=== PATIENT | female | born 1945 | race Caucasian/White ===

== ENCOUNTER 2017-05-12 16:35 | Inpatient (IN) | payer MEDICARE, OTHER ==
[2017-05-12 17:53] LABS: PROTHROMBIN TIME 14.3 SEC (11.4-15.4)
[2017-05-12 17:54] LABS: PARTIAL THROMBOPLASTIN TIME 27.8 SEC (23.5-35.8)
[2017-05-12 17:55] LABS: ABSOLUTE LYMPHOCYTES (AUTO) 0.6 10^3/uL (0.5-4.7); ABSOLUTE MONOCYTES (AUTO) 0.9 10^3/uL (0.1-1.4); ABSOLUTE NEUT (AUTO) 8.5 10^3/uL (1.7-8.2); BASOPHILS % (AUTO) 0.5 % (0-2); HEMATOCRIT 44.7 % (36.0-47.0); HGB HCT DIFFERENCE 0.3; LYMPHOCYTES % (AUTO) 6.1 % (13-45); MEAN CORPUSCULAR HEMOGLOBIN 29.7 pg (27.0-33.4); MEAN CORPUSCULAR HGB CONC 33.4 g/dL (32.0-36.0); MEAN CORPUSCULAR VOLUME 89 fl (80-97); RED BLOOD COUNT 5.03 10^6/uL (3.72-5.28); RED CELL DISTRIBUTION WIDTH 13.3 % (11.5-14.0); SEGMENTED NEUTROPHILS % (AUTO) 84.4 % (42-78); WHITE BLOOD COUNT 10.1 10^3/uL (4.0-10.5)
--- NOTE | 2017-05-12 18:07 | RADIOLOGY REPORT (SQ) ---
EXAM DESCRIPTION: CT HEAD WITHOUT COMPLETED DATE/TIME: 05/12/2017 5:55 pm REASON FOR STUDY: evaluate for CVA COMPARISON: None. TECHNIQUE: Axial images acquired through the brain without intravenous contrast. Images reviewed wi th bone, brain and subdural windows. Images stored on PACS. All CT scanners at this facility use dose modulation, iterative reconstruction, and/or weight based d osing when appropriate to reduce radiation dose to as low as reasonably achievable (ALARA). [facility]: Dose Right [facility]: CareDose [facility]: Dose Right [facility]: Teradose 4D [facility]: Smart Complete Solar RADIATION DOSE: Up-to-date CT equipment and radiation dose reduction techniques were employed. CTDIv ol: 64.6 mGy. DLP: 1034 mGy-cm. mGy. LIMITATIONS: None. FINDINGS: VENTRICLES: Normal size and contour. CEREBRUM: No masses. No hemorrhage. No midline shift. Normal jiménez/white matter differentiation. N o evidence for acute infarction. CEREBELLUM: No masses. No hemorrhage. No alteration of density. No evidence for acute infarction. EXTRAAXIAL SPACES: No fluid collections. No masses. ORBITS AND GLOBE: No intra- or extraconal masses. Normal contour of globe without masses. CALVARIUM: No fracture. PARANASAL SINUSES: No fluid or mucosal thickening. SOFT TISSUES: No mass or hematoma. OTHER: No other significant finding. IMPRESSION: NORMAL BRAIN CT WITHOUT CONTRAST. TECHNICAL DOCUMENTATION: JOB ID: [id number] Quality ID # [id number]: Final reports with documentation of one or more dose reduction techniques (e.g., Au tomated exposure control, adjustment of the mA and/or kV according to patient size, use of iterative reconstruction technique) 2010 [employer]- All Rights Reserved
--- NOTE | 2017-05-12 18:09 | RADIOLOGY REPORT (SQ) ---
EXAM DESCRIPTION: CHEST SINGLE VIEW COMPLETED DATE/TIME: 05/12/2017 6:02 pm REASON FOR STUDY: evaluate for CVA COMPARISON: None. EXAM PARAMETERS: NUMBER OF VIEWS: One view. TECHNIQUE: Single frontal radiographic view of the chest acquired. RADIATION DOSE: NA LIMITATIONS: None. FINDINGS: LUNGS AND PLEURA: No opacities, masses or pneumothorax. No pleural effusion. MEDIASTINUM AND HILAR STRUCTURES: No masses. Contour normal. HEART AND VASCULAR STRUCTURES: Heart normal in size. Normal vasculature. BONES: No acute findings. HARDWARE: None in the chest. OTHER: No other significant finding. IMPRESSION: NO ACUTE RADIOGRAPHIC FINDING IN THE CHEST. TECHNICAL DOCUMENTATION: JOB ID: [id number]
[2017-05-12 18:12] LABS: ALANINE AMINOTRANSFERASE 37 U/L (9-52); ALBUMIN 4.2 g/dL (3.5-5.0); ALKALINE PHOSPHATASE 68 U/L (38-126); ANION GAP 14 (5-19); ASPARTATE AMINO TRANSFERASE 40 U/L (14-36); BILIRUBIN,DIRECT 0.7 mg/dL (0.0-0.4); BLOOD UREA NITROGEN 24 mg/dL (7-20); CALCIUM 8.6 mg/dL (8.4-10.2); CARBON DIOXIDE 19 mmol/L (22-30); CHLORIDE 107 mmol/L (98-107); CREATINE KINASE 51 U/L (30-135); CREATININE RESULT 0.87 mg/dL (0.52-1.25); GLUCOSE 123 mg/dL (75-110); POTASSIUM 3.6 mmol/L (3.6-5.0); SODIUM 139.7 mmol/L (137-145); TOTAL PROTEIN 7.4 g/dL (6.3-8.2)
[2017-05-12 18:22] LABS: CREATINE KINASE MB 0.38 ng/mL (<4.55)
[2017-05-12 18:31] LABS: TROPONIN I 0.124 ng/mL
[2017-05-12 18:50] LABS: APPEARANCE,URINE CLOUDY; BILIRUBIN,URINE NEGATIVE (NEGATIVE); GLUCOSE, URINE NEGATIVE (NEGATIVE); KETONES,URINE 80 mg/dL (NEGATIVE); LEUKOCYTE ESTERASE,URINE LARGE (NEGATIVE); NITRITE,URINE NEGATIVE (NEGATIVE); PROTEIN,URINE 100 mg/dL (NEGATIVE); URINE SPECIFIC GRAVITY 1.027
[2017-05-12] MEDS ORDERED: NORMAL SALINE 1000 ML 1,000 ML IV ONE (18:50)
--- NOTE | 2017-05-12 19:14 | ER Document Report ---
ED General - General Information source: Patient, Relative TRAVEL OUTSIDE OF THE [place] IN LAST 30 DAYS: No <ADDISON LEMUS - Last Filed: 05/12/17 23:40> <ELBA BURGOS - Last Filed: 05/13/17 00:51> - General Chief Complaint: Palpitations Stated Complaint: POSSIBLE STROKE LIKE SYMPTOMS Time Seen by Provider: 05/12/17 17:54 Notes: Patient is a 72-year-old female who presents to the emergency department today with complaints of complaints of a posterior headache, fevers, chills, and an elevated heart rate. Patient states that she was at her PCP office earlier today and had a heart rate of 153 and a temperature of 104 F. Patient also complains of dark urine. Daughter at bedside states the patient was "out of character" today as well, attempting to leave the house without shoes. Patient complains of back pain which is chronic. Patient denies nausea, diarrhea, or dysuria. (ADDISON LEMUS) - Related Data Allergies/Adverse Reactions: surgical tape Allergy (Uncoded 05/12/17 22:28) Past Medical History - General Information source: Patient - Social History Smoking Status: Never Smoker Chew tobacco use (# tins/day): No Frequency of alcohol use: None Drug Abuse: None Lives with: Family Patient has suicidal ideation: No Patient has homicidal ideation: No - Medical History Medical History: Negative Past Surgical History: Reports: Hx Appendectomy, Hx Cholecystectomy, Hx Herniorrhaphy <ADDISON LEMUS - Last Filed: 05/12/17 23:40> - Social History Family History: Reviewed & Not Pertinent <ELBA BURGOS - Last Filed: 05/13/17 00:51> Review of Systems - Review of Systems Constitutional: See HPI, Chills, Fever EENT: No symptoms reported Cardiovascular: See HPI, Heart racing Respiratory: No symptoms reported Gastrointestinal: See HPI, Vomiting. denies: Diarrhea, Nausea Genitourinary: denies: Dysuria Female Genitourinary: No symptoms reported Musculoskeletal: See HPI, Back pain - chronic Skin: No symptoms reported Hematologic/Lymphatic: No symptoms reported Neurological/Psychological: See HPI, Headaches -: Yes All other systems reviewed and negative <ADDISON LEMUS - Last Filed: 05/12/17 23:40> Physical Exam - Vital signs Interpretation: Tachycardic, Febrile <ADDISON LEMUS - Last Filed: 05/12/17 23:40> <ELBA BURGOS - Last Filed: 05/13/17 00:51> - Vital signs Vitals: Temp Pulse Resp BP Pulse Ox 100.9 F H 144 H 18 121/81 95 05/12/17 16:42 05/12/17 16:42 05/12/17 16:42 05/12/17 16:42 05/12/17 16:42 - Notes Notes: Physical Exam: General: Confused. Drowsy but arousable. Mild distress. HEENT: Normocephalic. Atraumatic. PERRL. Extraocular movements intact. Oropharynx clear. Dry mucous membranes. Neck: Supple. Non-tender. Respiratory: No respiratory distress. Clear and equal breath sounds bilaterally. Cardiovascular: Tachycardic, regular rhythm. Abdominal: Normal Inspection. Non-tender. No distension. Normal Bowel Sounds. Back: Non-tender. No deformity or step off. Extremities: Moves all four extremities. Upper extremities: Normal inspection. Normal ROM. Lower extremities: Normal inspection. No edema. Normal ROM. Neurological: Confused, GCS of 14. Normal speech. Psychological: Normal affect. Normal Mood. Skin: Warm. Dry. Normal color. (ADDISON LEMUS) Course - Laboratory Result Diagrams: 05/12/17 17:37 05/12/17 17:37 <ADDISON LEMUS - Last Filed: 05/12/17 23:40> - Laboratory Result Diagrams: 05/12/17 17:37 05/12/17 17:37 - Diagnostic Test Radiology reviewed: Reports reviewed - EKG Interpretation by Pa EKG shows normal: Sinus rhythm Rate: Normal, Tachycardia Rhythm: NSR <ELBA BURGOS - Last Filed: 05/13/17 00:51> - Re-evaluation Re-evalutation: 05/12 Patient was brought to the emergency department by her family after patient had 104 fever and heart rate of 150 in her doctor's office. Patient was initially confused. Confusion is resolving with fever resolution. Patient with urinary tract infection. Heart rate has come down and blood pressure has been up fever has resolved. Patient has been given antibiotics here in the emergency department. Blood and urine culture sent. Patient was discussed with the hospitalist service and will be admitted for UTI, encephalopathy, and sirs. explained to patient and family. Patient does have a troponin consistent with demand ischemia. Repeat is the same as initial. Understand and agree with plan. Stable time of admission to the hospitalist service. (ELBA BURGOS) - Vital Signs Vital signs: Temp Pulse Resp BP Pulse Ox 97.9 F 79 20 113/61 98 05/12/17 23:15 05/12/17 23:17 05/12/17 23:15 05/12/17 23:15 05/12/17 23:15 - Laboratory Laboratory results interpreted by me: 05/12/17 05/12/17 05/12/17 17:37 17:37 18:23 Seg Neutrophils % 84.4 H Lymphocytes % 6.1 L Absolute Neutrophils 8.5 H Carbon Dioxide 19 L BUN 24 H Glucose 123 H Total Bilirubin 4.0 H Direct Bilirubin 0.7 H AST 40 H Urine Protein 100 H Urine Ketones 80 H Urine Urobilinogen 2.0 H Ur Leukocyte Esterase LARGE H Critical Care Note - Critical Care Note Total time excluding time spent on procedures (mins): 45 - Evaluation and management of tachycardia, fever, altered mental status, multiple re-evaluations , treatment ofsirs, coordination of admission, counseling of patient and family <ELBA BURGOS - Last Filed: 05/13/17 00:51> Discharge <ADDISON LEMUS - Last Filed: 05/12/17 23:40> - Discharge Admitting Provider: Hospitalist - [place] [facility] Admitted: [facility] <ELBA BURGOS - Last Filed: 05/13/17 00:51> - Discharge Clinical Impression: SIRS (systemic inflammatory response syndrome) UTI (urinary tract infection) Qualifiers: Urinary tract infection type: site unspecified Hematuria presence: with hematuria Qualified Code(s): N39.0 - Urinary tract infection, site not specified ; R31.9 - Hematuria, unspecified Condition: Stable Disposition: ADMITTED INPATIENT Scribe Attestation: 05/13/17 00:51 I personally performed the services described in the documentation, reviewed and edited the documentation which was dictated to the scribe in my presence, and it accurately records my words and actions. (ELBA BURGOS) Scribe Documentation - Scribe Written by Scribe:: Ingrid Castrejon, 05/12/[id number] acting as scribe for :: Yakov <ADDISON LEMUS - Last Filed: 05/12/17 23:40>
[2017-05-12] MEDS ORDERED: CEFTRIAXONE 1 GM/D5W RTU 50 ML IV ONE (19:39)
--- NOTE | 2017-05-12 19:47 | EKG REPORT ---
SEVERITY:- ABNORMAL ECG - SINUS TACHYCARDIA PROBABLE LEFT ATRIAL ABNORMALITY LEFT AXIS DEVIATION CONSIDER ANTERIOR INFARCT BORDERLINE T ABNORMALITIES, ANTERIOR LEADS : Confirmed by: Cali Parnell MD 12-May-2017 19:47:19
[2017-05-12] MEDS ORDERED: ACETAMINOPHEN 325 MG TABLET PO ONE (22:11)
[2017-05-12] MEDS ORDERED: MAGNESIUM HYDROXIDE SUSP 30 ML UDCUP PO PRN (22:39)
[2017-05-12] MEDS ORDERED: RINGERS SOLUTION,LACTATED 1,000 ML IV PRN (22:43)
[2017-05-12] MEDS ORDERED: ACETAMINOPHEN 325 MG TABLET PO PRN (22:44)
[2017-05-12 22:45] LABS: ADD ON TESTING BLD IN LAB ACKNOWLEDGE
[2017-05-12] MEDS ORDERED: PROMETHAZINE HCL 25 MG TABLET PO PRN (22:45)
--- NOTE | 2017-05-12 23:10 | PDOC H&P ---
History of Present Illness Admission Date/PCP: 05/12/17 21:14 MAJO VINES MD Cardiology, Dr. Hunt Davin Patient complains of: Confusion History of Present Illness: IMAN LYLE is a 72 year old female with underlying hypertension, episodic atrial flutter, chronically elevated bilirubin, mild esophageal reflux disease, occasional mild depression, without suicidal or homicidal ideation, partial hearing loss, hyperlipidemia, ankylosing spondylitis, obstructive sleep apnea, setting of 10, occasional urinary tract infection, and a distant history of nephrolithiasis who presents to the emergency room for evaluation of above complaint. Patient has been discussed with emergency room physician who evaluated the patient. Patient began having shaking chills and a all over warm feeling approximately 24 hours ago. Temperature 103.3 at home. Nausea and vomiting 1. Dark urine. No dysuria or diarrhea. According to daughter, who is present at bedside, with grandson, with patient's approval, patient was acting "out of character" earlier today, attempting to leave her house without her shoes. Temperature 104 at her primary care provider's office, with a heart rate near 153. Appeared quite ill, according to the emergency room physician, upon initial evaluation, but now appears clinically much improved, with daughter confirming same. Currently resting quietly, complaining of only mild chronic back pain. No chest pain. Negative nuclear stress study last month. No history of myocardial infarction or congestive heart failure, pulmonary embolus, or DVT. Laboratory results are listed in [facility] and are reviewed. X-ray summary results are listed below, with full report(s) reviewed. . EKG reviewed. No old EKG available for comparison. Social history/personal habits: . Lives alone. Retired.No use of tobacco or illicit drugs. Twice a month alcoholic drink. Allergies/adverse reactions are listed in [facility] and are reviewed. Home medications initially autopopulated into [employer] may not accurately reflect patient's true medications, dosages, and/or frequencies. technology internship to reconcile medications. Unfortunately, patient not certain of all medications/dosages/frequencies. REVIEW OF SYSTEMS: Constitutional: See history and present illness. Eyes: Wears glasses ENT: No swallowing problems or complaints. Partial hearing loss. Pulmonary: No current complaints. Cardiovascular: No current complaints, including chest pain. Gastrointestinal: See history and present illness. Skin: No current complaints, including rashes. Hematologic: Bruising. Neurologic: No current complaints, including numbness or tingling. Musculoskeletal: Chronic joint pain from her ankylosing spondylitis. Psychiatric: Mild occasional depression, without suicidal or homicidal ideation. Endocrine: No current complaints, including polyuria. Genitourinary: No current complaints, including dysuria. PHYSICAL EXAMINATION: Neither height nor weight are recorded on the chart. Blood pressure 117/67. Pulse 89 and regular. 98% saturation on room air. Respirations are 17 and unlabored. Temperature 100.9 earlier; skin feels normothermic. Somewhat obese otherwise well-developed female appearing approximately her stated age. Pleasant awake alert and cooperative. Appears perhaps slightly fatigued. Mildly anxious, without agitation. Daughter and grandson are present at her side; patient approves. Skin is warm and dry. No grossly obvious evidence of rash in areas of skin examined. No subcutaneous nodules palpated. ENT: Hearing grossly normal to normal conversation. Tongue midline on protrusion pink and slightly tacky. Eyes: No scleral icterus. Pupils equal and reactive to light at 4 mm. [place] conjunctivae. Neck is supple and nontender to gentle active range of motion and palpation. Midline trachea. No palpable thyroid nodule mass enlargement or tenderness. Lymphatic: No palpable cervical or clavicular nodes. Neck and lymphatic exams limited by patient body habitus. Psychiatric: Reasonable insight into acute and chronic medical issues. Oriented to time location and why here. Lungs: Auscultation reveals clear and equal breath sounds bilaterally. No use of accessory respiratory muscles. Cardiovascular: Heart regular rate and rhythm, without gallop murmur or rub. No carotid or abdominal aortic bruits. No ankle or pedal edema. Faintly palpable dorsalis pedis pulses. Abdomen:soft somewhat obese nontender with positive bowel sounds. Unable to adequately evaluate abdomen for masses or organomegaly due to body habitus. Extremities: Feet are warm and dry. No calf tenderness to compression. No grossly obvious visual evidence of calf swelling. Gentle manipulation of lower extremities fails to reveal any obvious evidence of injury or instability to knees hips or ankles. Neurologic: Moves upper extremities grossly normally. Patellar reflexes absent. Absent Babinski. Light touch is intact at feet. Dorsiflexion and plantarflexion of feet 5 / 5 and symmetric. Past Medical History Cardiac Medical History: Reports: Hypertension, Other - Episodic atrial flutter Denies: Congestive Heart Failure, Coronary Artery Disease, DVT, Hyperlipidema , Pulmonary Embolism Pulmonary Medical History: Reports: Sleep Apnea - CPAP setting of 10 at home; no home oxygen Denies: Asthma, Chronic Obstructive Pulmonary Disease (COPD) EENT Medical History: Reports: Eyes - Glasses, Ears - Partial hearing loss Denies: Throat Neurological Medical History: Denies: Hemorrhagic CVA, Ischemic CVA, Seizures Endocrine Medical History: Denies: Diabetes Mellitus Type 1, Diabetes Mellitus Type 2, Hyperthyroidism, Hypothyroidism Renal/ Medical History: Reports: Nephrolithiasis - Distant history, Other - Occasional urinary tract infection. Malignancy Medical History: Reports: Colorectal Cancer - Segmental colectomy, 2008 GI Medical History: Reports: Gastroesophageal Reflux Disease - Mild, Other - Chronically elevated bilirubin. Denies: Cirrhosis, Hepatitis, Peptic Ulcer Disease Musculoskeltal Medical History: Reports: Other - Ankylosing spondylitis Skin Medical History: Reports: None Psychiatric Medical History: Reports: Depression - Mild occasional; denies suicidal or homicidal ideation Denies: Alcohol Dependency, General Anxiety Disorder, Substance Abuse, Tobacco Dependency Hematology: Reports: Other - Easy bruising Infectious Medical History: Denies: Hepatitis B, Hepatitis C Past Surgical History Past Surgical History: Reports: Appendectomy - Incidental appendectomy during segmental colectomy, Cholecystectomy, Herniorrhaphy, Hysterectomy, Other - Segmental colectomy 2008 for carcinoma Social History Information Source: Patient, Emergency Med Personnel, [facility] Records Lives with: Alone Smoking Status: Never Smoker Frequency of Alcohol Use: Occasional Drugs: None - Advance Directive Resuscitation Status: Full Code Surrogate healthcare decision maker:: Children Family History Parental Family History Reviewed: Yes - Mother of end-stage renal disease; father COPD. Children Family History Reviewed: Yes - Daughter with thyroid problems Sibling(s) Family History Reviewed.: Yes - Sister is diabetic. Brother of lung cancer. Medication/Allergy Home Medications: Amlodipine Besylate 2.5 mg PO QHS 05/13/17 Aspirin [Aspirin 81 mg Chewable Tablet] 81 mg PO QHS 05/13/17 Celecoxib 200 mg PO BID 05/13/17 Cholecalciferol (Vitamin D3) [Vitamin D3 1000 Unit Tablet] 1,000 unit PO QHS Ciprofloxacin HCl [Cipro 500 mg Tablet] 500 mg PO BID #20 tablet 05/13/17 Magnesium Oxide 400 mg PO QHS 05/13/17 Metoprolol Tartrate 25 mg PO DAILY 05/13/17 Pravastatin Sodium 80 mg PO QHS 05/13/17 Ranitidine HCl 150 mg PO WLUNCH 05/13/17 Vitamin B Complex [B Complex] 1 each PO [id number] 05/13/17 Zolpidem Tartrate 10 mg PO QHS 05/13/17 Allergies/Adverse Reactions: surgical tape Allergy (Uncoded 05/12/17 22:28) Physical Exam Vital Signs: Temp Pulse Resp BP Pulse Ox 100.9 F H 109 H 21 H 117/69 98 05/12/17 16:42 05/12/17 19:17 05/12/17 22:01 05/12/17 22:00 05/12/17 22:01 Results Impressions: Chest X-Ray 05/12/17 17:43 IMPRESSION: NO ACUTE RADIOGRAPHIC FINDING IN THE CHEST. Head CT 05/12/17 17:43 IMPRESSION: NORMAL BRAIN CT WITHOUT CONTRAST. Assessment & Plan - Diagnosis (1) Acute encephalopathy Is this a current diagnosis for this admission?: YesPlan: Likely secondary to urinary tract infection. Resolving with time and treatment. (2) Elevated troponin Is this a current diagnosis for this admission?: YesPlan: No evidence of acute coronary syndrome, but will trend troponins, along with repeat EKG. (3) Sepsis Qualifiers: Sepsis type: sepsis due to unspecified organism Qualified Code(s): A41.9 - Sepsis, unspecified organism Is this a current diagnosis for this admission?: Yes (4) UTI (urinary tract infection) Qualifiers: Urinary tract infection type: site unspecified Hematuria presence: with hematuria Qualified Code(s): N39.0 - Urinary tract infection, site not specified Is this a current diagnosis for this admission?: YesPlan: Blood and urine cultures have been obtained. Rocephin. I have strongly encouraged patient not to get out of bed without notifying staff , to avoid a fall with injury. Knee high SCDs for DVT prophylaxis, along with subcutaneous Lovenox. Impression and plans were discussed with patient and family, all of whom concur. Time spent in evaluation and management of patient: 74 minutes. (5) Ankylosing spondylitis Qualifiers: Ankylosing spondylitis location: unspecified site of spine Qualified Code(s): M45.9 - Ankylosing spondylitis of unspecified sites in spine Is this a current diagnosis for this admission?: YesPlan: As needed pain medication. (6) HLD (hyperlipidemia) Qualifiers: Hyperlipidemia type: unspecified Qualified Code(s): E78.5 - Hyperlipidemia, unspecified Is this a current diagnosis for this admission?: YesPlan: Resume home medications as appropriate once these have been determined and reviewed. (7) HTN (hypertension) Qualifiers: Hypertension type: essential hypertension Qualified Code(s): I10 - Essential (primary) hypertension Is this a current diagnosis for this admission?: YesPlan: Resume home medications as appropriate once these have been determined and reviewed. (8) Hyperbilirubinemia Is this a current diagnosis for this admission?: YesPlan: Chronic problem for patient, but will repeat chemistry in the morning. - Inpatient Certification Based on my medical assessment, after consideration of the patient's comorbidities, presenting symptoms, or acuity I expect that the services needed warrant INPATIENT care.: Yes I certify that my determination is in accordance with my understanding of Medicare's requirements for reasonable and necessary INPATIENT services [42 CFR 412.3e].: Yes Medical Necessity: Need Close Monitoring Due to Risk of Patient Decompensation, Need For IV Fluids, Need For Continuous Telemetry Monitoring, Need for IV Antibiotics, Risk of Complication if Not Cared For in Hospital, Risk of Diagnosis Which Will Require Inpatient Eval/Care/Monitoring Post Hospital Care: D/C or Transfer Summary
[2017-05-12 23:35] LABS: MAGNESIUM 2.1 mg/dL (1.6-2.3)
[2017-05-13] MEDS ORDERED: ACETAMINOPHEN 325 MG TABLET PO PRN (00:18)
[2017-05-13 02:27] LABS: PROTHROMBIN TIME 15.2 SEC (11.4-15.4)
[2017-05-13 02:28] LABS: PARTIAL THROMBOPLASTIN TIME 31.6 SEC (23.5-35.8)
[2017-05-13 02:38] LABS: ANION GAP 11 (5-19); BLOOD UREA NITROGEN 24 mg/dL (7-20); CALCIUM 7.9 mg/dL (8.4-10.2); CARBON DIOXIDE 20 mmol/L (22-30); CHLORIDE 108 mmol/L (98-107); GLUCOSE 103 mg/dL (75-110); POTASSIUM 3.6 mmol/L (3.6-5.0); SODIUM 138.7 mmol/L (137-145)
--- NOTE | 2017-05-13 08:15 | EKG REPORT ---
SEVERITY:- ABNORMAL ECG - SINUS RHYTHM BORDERLINE R WAVE PROGRESSION, ANTERIOR LEADS NONSPECIFIC T ABNORMALITIES, ANT-LAT LEADS : Confirmed by: Cali Parnell MD 13-May-2017 08:14:19
[2017-05-13 08:40] LABS: ABSOLUTE LYMPHOCYTES (AUTO) 0.8 10^3/uL (0.5-4.7); ABSOLUTE MONOCYTES (AUTO) 0.9 10^3/uL (0.1-1.4); ABSOLUTE NEUT (AUTO) 2.7 10^3/uL (1.7-8.2); BASOPHILS % (AUTO) 0.5 % (0-2); EOSINOPHILS % (AUTO) 0.6 % (0-6); HEMATOCRIT 37.5 % (36.0-47.0); HGB HCT DIFFERENCE 0.9; LYMPHOCYTES % (AUTO) 17.4 % (13-45); MEAN CORPUSCULAR HGB CONC 34.2 g/dL (32.0-36.0); MEAN CORPUSCULAR VOLUME 88 fl (80-97); MONOCYTES % (AUTO) 19.9 % (3-13); RED BLOOD COUNT 4.28 10^6/uL (3.72-5.28); RED CELL DISTRIBUTION WIDTH 13.7 % (11.5-14.0); SEGMENTED NEUTROPHILS % (AUTO) 61.6 % (42-78); WHITE BLOOD COUNT 4.5 10^3/uL (4.0-10.5)
[2017-05-13 08:45] LABS: HEMOGLOBIN 12.8 g/dL (12.0-15.5)
[2017-05-13 08:55] LABS: ALANINE AMINOTRANSFERASE 38 U/L (9-52); ALBUMIN 3.1 g/dL (3.5-5.0); ALKALINE PHOSPHATASE 53 U/L (38-126); ANION GAP 8 (5-19); ASPARTATE AMINO TRANSFERASE 28 U/L (14-36); BILIRUBIN,DIRECT 0.4 mg/dL (0.0-0.4); BILIRUBIN,TOTAL 3.9 mg/dL (0.2-1.3); BLOOD UREA NITROGEN 25 mg/dL (7-20); CARBON DIOXIDE 23 mmol/L (22-30); CHLORIDE 109 mmol/L (98-107); GLUCOSE 76 mg/dL (75-110); POTASSIUM 3.4 mmol/L (3.6-5.0); SODIUM 140.3 mmol/L (137-145); TOTAL PROTEIN 5.6 g/dL (6.3-8.2)
[2017-05-13] MEDS ORDERED: CEFTRIAXONE 1 GM/D5W RTU 1 GM/50 ML RTUPB IV SCH (10:00)
[2017-05-13] MEDS ORDERED: ENOXAPARIN SODIUM INJ 40 MG/0.4 ML DISP.SYRIN SUBCUT SCH (10:00)
[2017-05-13] MEDS ORDERED: DOCUSATE SODIUM 100 MG CAPSULE PO SCH (10:00)
[2017-05-13] MEDS ORDERED: POTASSIUM CHLORIDE 10 MEQ TABLET.SA PO ONE (10:15)
[2017-05-13 10:35] VITALS: BP 121/81
--- NOTE | 2017-05-13 10:38 | PDOC DISCHARGE SUMMARY ---
General - Admit/Disc Date/PCP Admission Date/Primary Care Provider: 05/12/17 22:39 MAJO VINES MD Discharge Date: 05/13/17 - Discharge Diagnosis (1) SIRS (systemic inflammatory response syndrome) Is this a current diagnosis for this admission?: YesSummary: Due to UTI. Afebrile and BP stable at time of discharge. Lactic acid level normal. (2) UTI (urinary tract infection) Is this a current diagnosis for this admission?: YesSummary: Given IV Rocephin x 1 dose. Patient request to go home. Discharged home on oral Cipro. Follow up with Dr. Ashley AMARAL for re-evaluation and to follow up on urine culture results. (3) Acute encephalopathy Is this a current diagnosis for this admission?: YesSummary: Due to UTI. Resolved. (4) Elevated troponin Is this a current diagnosis for this admission?: YesSummary: Due to acute illness. No chest pain. Recent negative stress test by Dr. Hunt of cardiology in [place]. Case discussed with Dr. Hummel of cardiology. (5) Ankylosing spondylitis Is this a current diagnosis for this admission?: Yes (6) Episodic atrial flutter Is this a current diagnosis for this admission?: Yes (7) HLD (hyperlipidemia) Is this a current diagnosis for this admission?: Yes (8) HTN (hypertension) Is this a current diagnosis for this admission?: Yes - Additional Information Resuscitation Status: Full Code Discharge Diet: Cardiac Discharge Activity: Slowly Increase Activity Home Medications: Amlodipine Besylate 2.5 mg PO QHS 05/13/17 Aspirin [Aspirin 81 mg Chewable Tablet] 81 mg PO QHS 05/13/17 Celecoxib 200 mg PO BID 05/13/17 Cholecalciferol (Vitamin D3) [Vitamin D3 1000 Unit Tablet] 1,000 unit PO QHS Ciprofloxacin HCl [Cipro 500 mg Tablet] 500 mg PO BID #20 tablet 05/13/17 Magnesium Oxide 400 mg PO QHS 05/13/17 Metoprolol Tartrate 25 mg PO DAILY 05/13/17 Pravastatin Sodium 80 mg PO QHS 05/13/17 Ranitidine HCl 150 mg PO WLUNCH 05/13/17 Vitamin B Complex [B Complex] 1 each PO [id number] 05/13/17 Zolpidem Tartrate 10 mg PO QHS 05/13/17 History of Present Illness Patient complains of: AMS, fever History of Present Illness: IMAN LYLE is a 72 year old female with underlying hypertension, episodic atrial flutter, chronically elevated bilirubin, mild esophageal reflux disease, occasional mild depression, without suicidal or homicidal ideation, partial hearing loss, hyperlipidemia, ankylosing spondylitis, obstructive sleep apnea, setting of 10, and with an occasional urinary tract infection, and a distant history of nephrolithiasis who presents to the emergency room for evaluation of above complaint. Physical Exam Vital Signs: Temp Pulse Resp BP Pulse Ox 97.3 F 66 20 100/52 L 100 05/13/17 07:13 05/13/17 07:13 05/13/17 07:13 05/13/17 07:13 05/13/17 07:13 Intake & Output 05/12/17 05/13/17 05/14/17 06:59 06:59 06:59 Intake Total 600 Balance 600 Weight 94.9 kg General appearance: PRESENT: no acute distress, well-developed, well-nourished Head exam: PRESENT: atraumatic, normocephalic Eye exam: PRESENT: conjunctiva pink, EOMI, PERRLA. ABSENT: scleral icterus Ear exam: PRESENT: normal external ear exam Mouth exam: PRESENT: moist, tongue midline Neck exam: ABSENT: carotid bruit, JVD, lymphadenopathy, thyromegaly Respiratory exam: PRESENT: clear to auscultation kae. ABSENT: rales, rhonchi, wheezes Cardiovascular exam: PRESENT: RRR. ABSENT: diastolic murmur, rubs, systolic murmur Pulses: PRESENT: normal dorsalis pedis pul Vascular exam: PRESENT: normal capillary refill GI/Abdominal exam: PRESENT: normal bowel sounds, soft. ABSENT: distended, guarding, mass, organolmegaly, rebound, tenderness Rectal exam: PRESENT: deferred Extremities exam: PRESENT: full ROM. ABSENT: calf tenderness, clubbing, pedal edema Neurological exam: PRESENT: alert, awake, oriented to person, oriented to place , oriented to time, oriented to situation, CN II-XII grossly intact. ABSENT: motor sensory deficit Psychiatric exam: PRESENT: appropriate affect, normal mood. ABSENT: homicidal ideation, suicidal ideation Skin exam: PRESENT: dry, intact, warm. ABSENT: cyanosis, rash Results Laboratory Results: 05/13/17 08:06 05/13/17 08:06 05/13/17 05/13/17 05/13/17 01:58 08:06 08:06 WBC 4.5 RBC 4.28 Hgb 12.8 D Hct 37.5 MCV 88 MCH 30.0 MCHC 34.2 RDW 13.7 Plt Count 127 L Seg Neutrophils % 61.6 Lymphocytes % 17.4 Monocytes % 19.9 H Eosinophils % 0.6 Basophils % 0.5 Absolute Neutrophils 2.7 Absolute Lymphocytes 0.8 Absolute Monocytes 0.9 Absolute Eosinophils 0.0 Absolute Basophils 0.0 Sodium 138.7 140.3 Potassium 3.6 3.4 L Chloride 108 H 109 H Carbon Dioxide 20 L 23 Anion Gap 11 8 BUN 24 H 25 H Creatinine 0.70 0.70 Est GFR ( Amer) > 60 > 60 Est GFR (Non-Af Amer) > 60 > 60 Glucose 103 76 Calcium 7.9 L 8.0 L Total Bilirubin 3.9 H AST 28 ALT 38 Alkaline Phosphatase 53 Total Protein 5.6 L Albumin 3.1 L 05/13/17 05/13/17 01:58 08:06 Troponin I 0.124 0.100 Labs- All tests 24 hr 05/12/17 05/12/17 05/12/17 17:37 17:37 17:37 WBC 10.1 RBC 5.03 Hgb 15.0 Hct 44.7 MCV 89 MCH 29.7 MCHC 33.4 RDW 13.3 Plt Count 157 Seg Neutrophils % 84.4 H Lymphocytes % 6.1 L Monocytes % 9.0 Eosinophils % 0.0 Basophils % 0.5 Absolute Neutrophils 8.5 H Absolute Lymphocytes 0.6 Absolute Monocytes 0.9 Absolute Eosinophils 0.0 Absolute Basophils 0.0 PT 14.3 INR 1.04 APTT 27.8 Sodium 139.7 Potassium 3.6 Chloride 107 Carbon Dioxide 19 L Anion Gap 14 BUN 24 H Creatinine 0.87 Est GFR ( Amer) > 60 Est GFR (Non-Af Amer) > 60 Glucose 123 H Lactic Acid Calcium 8.6 Magnesium Total Bilirubin 4.0 H Direct Bilirubin 0.7 H Indirect Bilirubin Not Reportable Neonat Total Bilirubin Not Reportable AST 40 H ALT 37 Alkaline Phosphatase 68 Creatine Kinase 51 CK-MB (CK-2) Troponin I Total Protein 7.4 Albumin 4.2 TSH Urine Color Urine Appearance Urine pH Ur Specific [place] Urine Protein Urine Glucose (UA) Urine Ketones Urine Blood Urine Nitrite Urine Bilirubin Urine Urobilinogen Ur Leukocyte Esterase Urine WBC (Auto) Urine RBC (Auto) Squamous Epi Cells Auto U Non-Squamous Epis Auto Urine Mucus (Auto) Urine Ascorbic Acid 05/12/17 05/12/17 05/12/17 17:37 17:37 18:23 WBC RBC Hgb Hct MCV MCH MCHC RDW Plt Count Seg Neutrophils % Lymphocytes % Monocytes % Eosinophils % Basophils % Absolute Neutrophils Absolute Lymphocytes Absolute Monocytes Absolute Eosinophils Absolute Basophils PT INR APTT Sodium Potassium Chloride Carbon Dioxide Anion Gap BUN Creatinine Est GFR ( Amer) Est GFR (Non-Af Amer) Glucose Lactic Acid 0.8 Calcium Magnesium Total Bilirubin Direct Bilirubin Indirect Bilirubin Neonat Total Bilirubin AST ALT Alkaline Phosphatase Creatine Kinase CK-MB (CK-2) 0.38 Troponin I 0.124 Total Protein Albumin TSH Urine Color [place] Urine Appearance CLOUDY Urine pH 5.0 Ur Specific [place] 1.027 Urine Protein 100 H Urine Glucose (UA) NEGATIVE Urine Ketones 80 H Urine Blood NEGATIVE Urine Nitrite NEGATIVE Urine Bilirubin NEGATIVE Urine Urobilinogen 2.0 H Ur Leukocyte Esterase LARGE H Urine WBC (Auto) >182 Urine RBC (Auto) 20 Squamous Epi Cells Auto 25 U Non-Squamous Epis Auto 3 Urine Mucus (Auto) MANY Urine Ascorbic Acid NEGATIVE 05/12/17 05/12/17 05/12/17 19:55 19:55 19:55 WBC RBC Hgb Hct MCV MCH MCHC RDW Plt Count Seg Neutrophils % Lymphocytes % Monocytes % Eosinophils % Basophils % Absolute Neutrophils Absolute Lymphocytes Absolute Monocytes Absolute Eosinophils Absolute Basophils PT INR APTT Sodium Potassium Chloride Carbon Dioxide Anion Gap BUN Creatinine Est GFR ( Amer) Est GFR (Non-Af Amer) Glucose Lactic Acid Calcium Magnesium 2.1 Total Bilirubin Direct Bilirubin Indirect Bilirubin Neonat Total Bilirubin AST ALT Alkaline Phosphatase Creatine Kinase CK-MB (CK-2) Troponin I 0.129 Total Protein Albumin TSH 0.93 Urine Color Urine Appearance Urine pH Ur Specific [place] Urine Protein Urine Glucose (UA) Urine Ketones Urine Blood Urine Nitrite Urine Bilirubin Urine Urobilinogen Ur Leukocyte Esterase Urine WBC (Auto) Urine RBC (Auto) Squamous Epi Cells Auto U Non-Squamous Epis Auto Urine Mucus (Auto) Urine Ascorbic Acid 05/13/17 05/13/17 05/13/17 01:58 01:58 01:58 WBC RBC Hgb Hct MCV MCH MCHC RDW Plt Count Seg Neutrophils % Lymphocytes % Monocytes % Eosinophils % Basophils % Absolute Neutrophils Absolute Lymphocytes Absolute Monocytes Absolute Eosinophils Absolute Basophils PT 15.2 INR 1.12 APTT 31.6 Sodium 138.7 Potassium 3.6 Chloride 108 H Carbon Dioxide 20 L Anion Gap 11 BUN 24 H Creatinine 0.70 Est GFR ( Amer) > 60 Est GFR (Non-Af Amer) > 60 Glucose 103 Lactic Acid Calcium 7.9 L Magnesium Total Bilirubin Direct Bilirubin Indirect Bilirubin Neonat Total Bilirubin AST ALT Alkaline Phosphatase Creatine Kinase CK-MB (CK-2) Troponin I 0.124 Total Protein Albumin TSH Urine Color Urine Appearance Urine pH Ur Specific [place] Urine Protein Urine Glucose (UA) Urine Ketones Urine Blood Urine Nitrite Urine Bilirubin Urine Urobilinogen Ur Leukocyte Esterase Urine WBC (Auto) Urine RBC (Auto) Squamous Epi Cells Auto U Non-Squamous Epis Auto Urine Mucus (Auto) Urine Ascorbic Acid 05/13/17 05/13/17 05/13/17 08:06 08:06 08:06 WBC 4.5 RBC 4.28 Hgb 12.8 D Hct 37.5 MCV 88 MCH 30.0 MCHC 34.2 RDW 13.7 Plt Count 127 L Seg Neutrophils % 61.6 Lymphocytes % 17.4 Monocytes % 19.9 H Eosinophils % 0.6 Basophils % 0.5 Absolute Neutrophils 2.7 Absolute Lymphocytes 0.8 Absolute Monocytes 0.9 Absolute Eosinophils 0.0 Absolute Basophils 0.0 PT INR APTT Sodium 140.3 Potassium 3.4 L Chloride 109 H Carbon Dioxide 23 Anion Gap 8 BUN 25 H Creatinine 0.70 Est GFR ( Amer) > 60 Est GFR (Non-Af Amer) > 60 Glucose 76 Lactic Acid Calcium 8.0 L Magnesium Total Bilirubin 3.9 H Direct Bilirubin 0.4 Indirect Bilirubin Not Reportable Neonat Total Bilirubin Not Reportable AST 28 ALT 38 Alkaline Phosphatase 53 Creatine Kinase CK-MB (CK-2) Troponin I 0.100 Total Protein 5.6 L Albumin 3.1 L TSH Urine Color Urine Appearance Urine pH Ur Specific [place] Urine Protein Urine Glucose (UA) Urine Ketones Urine Blood Urine Nitrite Urine Bilirubin Urine Urobilinogen Ur Leukocyte Esterase Urine WBC (Auto) Urine RBC (Auto) Squamous Epi Cells Auto U Non-Squamous Epis Auto Urine Mucus (Auto) Urine Ascorbic Acid 05/12/17 19:55 Blood Culture - Pending Blood 05/12/17 18:23 Urine Culture - Pending Clean Catch Midstream 05/12/17 18:00 Blood Culture - Pending Blood Impressions: Chest X-Ray 05/12/17 17:43 IMPRESSION: NO ACUTE RADIOGRAPHIC FINDING IN THE CHEST. Head CT 05/12/17 17:43 IMPRESSION: NORMAL BRAIN CT WITHOUT CONTRAST. Qualifiers PATEINT BEING DISCHARGED WITH ANY OF THE FOLLOWING DIAGNOSIS?: No Plan Time Spent: Less than 30 Minutes
[2017-05-13] MEDS ORDERED: METOPROLOL TARTRATE 25 MG TABLET PO ONE (11:00)
[2017-05-13] MEDS ORDERED: FAMOTIDINE 20 MG TABLET PO SCH (12:00)
[2017-05-13] MEDS ORDERED: (PENDING PHARMACY ID) (Ranitidine Hcl [Ranitidine Hcl] 150 MG) PO SCH (12:00)
[2017-05-13] MEDS ORDERED: CELECOXIB 200 MG CAPSULE PO SCH (18:00)
--- NOTE | 2017-05-13 18:38 | EKG REPORT ---
SEVERITY:- ABNORMAL ECG - SINUS RHYTHM BORDERLINE LEFT AXIS DEVIATION CONSIDER ANTERIOR INFARCT NONSPECIFIC T ABNORMALITIES, ANT-LAT LEADS : Confirmed by: Cali Parnell MD 13-May-2017 18:37:47
[2017-05-13] MEDS ORDERED: MAGNESIUM OXIDE 400 MG TABLET PO SCH (22:00)
[2017-05-13] MEDS ORDERED: ASPIRIN 81 MG TABLET, CHEWABLE PO SCH (22:00)
[2017-05-13] MEDS ORDERED: (PENDING PHARMACY ID) (Pravastatin Sodium [Pravastatin Sodium] 80 MG) PO SCH (22:00)
[2017-05-13] MEDS ORDERED: ATORVASTATIN CALCIUM 20 MG TABLET PO SCH (22:00)
[2017-05-13] MEDS ORDERED: CHOLECALCIFEROL (D3) 1,000 UNIT TABLET PO SCH (22:00)
[2017-05-14] MEDS ORDERED: METOPROLOL TARTRATE 25 MG TABLET PO SCH (10:00)
== END 2017-05-13 11:59 | disposition home or self-care (01) | DRG 689 ==
LOC: ER 16:35 → EH 21:14 → UNDOADMIN 21:14 → EH 22:39 → 3N 23:05
PROVIDERS: ADMIT Family Medicine; ATTEND Family Medicine
DX: N39.0 Urinary tract infection, site not specified (principal); G93.49 Other encephalopathy; I48.92 Unspecified atrial flutter; R00.2 Palpitations; M54.9 Dorsalgia, unspecified; R31.9 Hematuria, unspecified; I10 Essential (primary) hypertension; E78.5 Hyperlipidemia, unspecified; R77.8 Other specified abnormalities of plasma proteins; E80.6 Other disorders of bilirubin metabolism; M45.9 Ankylosing spondylitis of unspecified sites in spine; G47.33 Obstructive sleep apnea (adult) (pediatric); Z60.2 Problems related to living alone; Z79.82 Long term (current) use of aspirin; Z79.899 Other long term (current) drug therapy
CPT/HCPCS: 36415; 70450; 71010; 80048; 80053; 81001; 82550; 82553; 83605; 83735; 84443; 84484; 85025; 85610; 85730; 87040; 87086; 93005; 93010; 96365; 99291; J0696; J7030; J7120

== ENCOUNTER → 2018-04-20 | Outpatient (CLI) | payer MEDICARE, OTHER ==
[2018-04-20 12:27] LABS: HEMATOCRIT 43.4 % (36.0-47.0); HEMOGLOBIN 14.9 g/dL (12.0-15.5); MEAN CORPUSCULAR HEMOGLOBIN 30.1 pg (27.0-33.4); MEAN CORPUSCULAR HGB CONC 34.4 g/dL (32.0-36.0); MEAN CORPUSCULAR VOLUME 87 fl (80-97); PLATELET COUNT 242 10^3/uL (150-450); RED BLOOD COUNT 4.96 10^6/uL (3.72-5.28); WHITE BLOOD COUNT 7.2 10^3/uL (4.0-10.5)
[2018-04-20 12:35] LABS: APPEARANCE,URINE CLEAR; BILIRUBIN,URINE NEGATIVE (NEGATIVE); COLOR,URINE YELLOW; GLUCOSE, URINE NEGATIVE (NEGATIVE); KETONES,URINE NEGATIVE (NEGATIVE); LEUKOCYTE ESTERASE,URINE TRACE (NEGATIVE); NITRITE,URINE NEGATIVE (NEGATIVE); PROTEIN,URINE NEGATIVE (NEGATIVE); URINE SPECIFIC GRAVITY 1.014; UROBILINOGEN,URINE NEGATIVE mg/dL (<2.0)
[2018-04-20 12:52] LABS: ANION GAP 9 (5-19); BLOOD UREA NITROGEN 20 mg/dL (7-20); CALCIUM 9.4 mg/dL (8.4-10.2); CARBON DIOXIDE 27 mmol/L (22-30); CHLORIDE 109 mmol/L (98-107); GLUCOSE 87 mg/dL (75-110); POTASSIUM 4.6 mmol/L (3.6-5.0); SODIUM 145.2 mmol/L (137-145)
== END ==
LOC: OD 11:18
PROVIDERS: ATTEND Internal Medicine Nephrology
DX: I10 Essential (primary) hypertension (principal); Q61.9 Cystic kidney disease, unspecified
CPT/HCPCS: 36415; 80048; 81001; 85027

== ENCOUNTER → 2018-11-03 | Outpatient (CLI) | payer MEDICARE, OTHER ==
[2018-11-03 13:05] LABS: BLOOD UREA NITROGEN 14 mg/dL (7-20)
== END ==
LOC: OD 12:14
PROVIDERS: ATTEND Internal Medicine Gastroenterology
DX: N28.9 Disorder of kidney and ureter, unspecified (principal)
CPT/HCPCS: 36415; 82565; 84520